=== PATIENT | female | born 1990 | race Caucasian/White ===

== ENCOUNTER 2018-11-09 13:48 | Emergency (ER) | payer BC ==
[~2018-11-09] VITALS: Ht 162.6 cm; Wt 58.5 kg
[2018-11-09] MEDS ORDERED: HYDR-3165 PO (15:58)
[2018-11-09] MEDS ORDERED: AMOX1TAB61 PO (15:58)
--- NOTE | 2018-11-09 15:58 | PHYS DOC ---
Past History Past Medical History: No Pertinent History Past Surgical History: No Surgical History Additional Smoking Information: SMOKES 1/2 PPD FOR 8 YEARS Alcohol Use: None Drug Use: None Adult General Chief Complaint Chief Complaint: DENTAL PROBLEM HPI HPI Patient is a 28 year old female who presents with complaint of right-sided dental pain. The patient states that she has been having pain to the right side of her mouth the past 2-3 days. 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 States the pain is towards the back of her jaw. States that she has to exposed roots. Has not seen a dentist. Has had previous history of infection in this area within the last few months. Notes worsening symptoms again over the past 2 days. Has not seen her dentist but is making an appointment. States that she has been using ibuprofen help with pain but states that this is not working for her. Came to the emergency department for concern of infection and help with pain control. Review of Systems Review of Systems Constitutional: Denies fever or chills [] Eyes: Denies change in visual acuity, redness, or eye pain [] HENT: Dental pain, no facial swelling[] Respiratory: Denies cough or shortness of breath [] Cardiovascular: No additional information not addressed in HPI [] GI: Denies abdominal pain, nausea, vomiting, bloody stools or diarrhea [] : Denies dysuria or hematuria [] Musculoskeletal: Denies back pain or joint pain [] Integument: Denies rash or skin lesions [] Neurologic: Denies headache, focal weakness or sensory changes [] All other systems were reviewed and found to be within normal limits, except as documented in this note. Allergies Allergies Allergies Coded Allergies Type Severity Reaction Last Updated Verified No Known Drug Allergies 11/09/18 No Physical Exam Physical Exam Constitutional: Alert, afebrile, appears in moderate to severe discomfort. [] HENT: Normocephalic, atraumatic, bilateral external ears normal, oropharynx moist, exposed dental roots at #31 and #32 with surrounding gingival erythema and tenderness to palpation, no fluctuance, no oral exudates, nose normal. [] Eyes: PERRLA, EOMI, conjunctiva normal, no discharge. [] Neck: Normal range of motion, no tenderness, supple, no stridor. [] Cardiovascular:Heart rate regular rhythm, no murmur [] Lungs & Thorax: Bilateral breath sounds clear to auscultation [] Abdomen: Bowel sounds normal, soft, no tenderness, no masses, no pulsatile masses. [] Skin: Warm, dry, no erythema, no rash. [] Back: No tenderness, no CVA tenderness. [] Extremities: No tenderness, no cyanosis, no clubbing, ROM intact, no edema. [] Neurologic: Alert and oriented X 3, normal motor function, normal sensory function, no focal deficits noted. [] Current Patient Data Vital Signs Vital Signs Date Time Temp Pulse Resp B/P (MAP) Pulse Ox O2 Delivery O2 Flow Rate FiO2 11/09/18 15:06 98.1 73 20 98 Room Air Lab Results Not performed EKG EKG Not performed[] Radiology/Procedures Radiology/Procedures Not performed[] Course & Med Decision Making Course & Med Decision Making Pertinent Labs and Imaging studies reviewed. (See chart for details) Patient started on Augmentin. Prescribed Augmentin and [place] for continued outpatient therapy. Advised follow-up with dentist in the next 3-5 days for reevaluation. Recommended return to the emergency department for any worsening symptoms. Patient voiced understanding and in agreement with treatment plan.[] Dragon Disclaimer Dragon Disclaimer This electronic medical record was generated, in whole or in part, using a voice recognition dictation system. Departure Departure: Impression: Primary Impression: Pain, dental Disposition: HOME, SELF-CARE Condition: STABLE Referrals: PCP,NO (PCP) Patient Instructions: Dental Pain Additional Instructions: Follow-up with your dentist in the next 3-5 days for reevaluation. Return to the emergency department for any worsening symptoms. Scripts Hydrocodone Bit/Acetaminophen (NORCO 5-325 TABLET) 1 Each Tablet 1 TAB PO Q4-6HRS PRN for PAIN, #20 TAB Prov: MAXIME CA MD 11/09/18 Amoxicillin/Potassium Clav (AUGMENTIN 875-125 TABLET) 1 Each Tablet 1 TAB PO BID, #20 TAB Prov: MAXIME CA MD 11/09/18 MAXIME CA MD November 09, 2018 15:58
[2018-11-09] MEDS ORDERED: AMOXICILLIN/K CLAV 875/125MG TABLET. PO ONE (16:00)
[2018-11-09] MEDS ORDERED: HYDROcodone/APAP 5/325MG 1 TAB TABLET PO ONE (16:00)
[2018-11-09 16:11] VITALS: BP 138/80
== END 2018-11-09 16:20 | disposition home or self-care (01) ==
LOC: ER 13:48
DX: K08.89 Other specified disorders of teeth and supporting structures (principal); K06.8 Other specified disorders of gingiva and edentulous alveolar ridge; F17.200 Nicotine dependence, unspecified, uncomplicated
CPT/HCPCS: 99283